=== PATIENT | male | born 1940 | race Native Hawaiian/Other Pacific Islander ===

== ENCOUNTER 2016-12-23 09:08 | Outpatient (CLI) | payer OTHER ==
[2016-12-23 10:01] LABS: PLATELET COUNT 190 K/uL (142-355)
[2016-12-23 10:06] LABS: POTASSIUM 4.4 mmol/L (3.6-5.2)
== END 2016-12-23 19:11 | disposition home or self-care (01) ==
LOC: LABW 09:08
PROVIDERS: Internal Medicine
DX: E11.9 Type 2 diabetes mellitus without complications (principal)
CPT/HCPCS: 36415; 80053; 80061; 81000; 82043; 82570; 83036; 84443; 85027